=== PATIENT | male | born 1975 | race Two or more races ===

== ENCOUNTER 2022-08-30 05:32 | Day surgery (SDC) | payer OTHER | END 2022-08-30 10:35 | disposition home or self-care (01) | LOC: AMB-ENDOS 05:32 → CIR.AMB 13:45 | PROVIDERS: ATTEND Colon & Rectal Surgery | DX: Z85.048 Personal history of other malignant neoplasm of rectum, rectosigmoid junction, and anus (principal); K92.1 Melena; K64.8 Other hemorrhoids; K57.30 Diverticulosis of large intestine without perforation or abscess without bleeding; Z20.822 Contact with and (suspected) exposure to COVID-19 ==

== ENCOUNTER 2023-02-28 05:57 | Day surgery (SDC) | payer OTHER | END 2023-02-28 10:10 | disposition home or self-care (01) | LOC: AMB-ENDOS 05:57 | PROVIDERS: ATTEND Colon & Rectal Surgery | DX: C20 Malignant neoplasm of rectum (principal); K64.8 Other hemorrhoids; Z20.822 Contact with and (suspected) exposure to COVID-19 ==

== ENCOUNTER 2024-03-04 08:43 | Emergency (ER) | payer OTHER ==
[~2024-03-04] VITALS: Ht 177.8 cm; Wt 93.0 kg
[2024-03-04] MEDS ORDERED: AMLODIPINE-OLM1 EACH (08:48)
[2024-03-04] MEDS ORDERED: GRALISE600 MG (08:49)
[2024-03-04] MEDS ORDERED: BARIUM SULFATE 450 ML ORAL.SUSP PO ONE (09:17)
[2024-03-04 09:43] LABS: HEMATOCRIT 42.5 % (39.0-48.0); HEMOGLOBIN 15.1 g/dL (13-16.00); MEAN CELL VOLUME 93.8 fL (80.0-100.00); MEAN CORPUSCULAR HEMOGLOBIN 33.2 pg (27.00-32.0); MEAN CORPUSCULAR HGB CONC 35.4 g/dl (32.0-36.0); PLATELET COUNT 217 K/uL (150-450); RED BLOOD COUNT 4.53 M/uL (4.00-6.00); RED CELL DISTRIBUTION WIDTH 14.2 % (11.5-14.5)
[2024-03-04 10:37] LABS: CALCIUM 9.3 mg/dL (8.5-10.1); CREATININE SERUM 0.95 mg/dL (0.70-1.30); GFR 85.35; POTASSIUM 4.5 mEq/L (3.5-5.1)
[2024-03-04 11:16] LABS: PH,URINE 5.5 (5.0-8.0); URINE APPEARANCE Clear; URINE BILIRRUBIN Negative (NEGATIVE); URINE BLOOD Negative; URINE COLOR Dark Yellow; URINE GLUCOSE Negative (NEGATIVE); URINE KETONE Trace (NEGATIVE); URINE LEUKOCYTE Negative; URINE NITRATE Negative; URINE PROTEIN Trace (NEGATIVE); URINE UROBILINOGEN 0.2 E.U./dl
[2024-03-04 11:21] LABS: URINE BACTERIA 76.8 uL (0.0-1933); URINE RBC 2.7 uL (0.0-20.8); URINE WBC 6.9 uL (0.0-23.2)
[2024-03-04 11:30] LABS: URINE CAST 0.15 uL (0.0-1.40)
== END 2024-03-04 14:12 | disposition home or self-care (01) ==
LOC: ER 08:44
PROVIDERS: Emergency Medicine
DX: R10.32 Left lower quadrant pain (principal); K57.32 Diverticulitis of large intestine without perforation or abscess without bleeding; N28.1 Cyst of kidney, acquired; N20.0 Calculus of kidney

== ENCOUNTER 2024-11-05 10:00 | Inpatient (IN) | payer OTHER ==
[~2024-11-05] VITALS: Ht 162.6 cm; Wt 97.5 kg
[~2024-11-05 10:00] MED LIST: AMLODIPINE-OLM1 EACH; GRALISE600 MG
[2024-11-06] MEDS ORDERED: AZOR 5-20 MG T1 EACH PO (13:21)
[2024-11-19] MEDS ORDERED: CEFTRIAXONE SODIUM 2,000 MG VIAL ONE (08:26)
[2024-11-19] MEDS ORDERED: METRONIDAZOLE/SODIUM CHLORIDE 500 MG/100 ML PIGGYBACK IV ONE ×2 (08:27→09:30)
[2024-11-19] MEDS ORDERED: LIDOCAINE HCL 1%/EPINEPHRINE 20ML VIAL IJ ONE (09:30)
[2024-11-19] MEDS ORDERED: CEFTRIAXONE SODIUM 2,000 MG VIAL IV ONE (09:30)
[2024-11-19] MEDS ORDERED: BUPIVACAINE HCL 30 ML VIAL IJ ONE (09:30)
[2024-11-19] MEDS ORDERED: SUGAMMADEX SODIUM 200 MG/2 ML VIAL IV ONE (12:19)
[2024-11-19] MEDS ORDERED: MORPHINE SULFATE 4 MG/ML VIAL IV ONE ×2 (13:15→13:30)
[2024-11-19] MEDS ORDERED: ONDANSETRON HCL 2 MG/ML VIAL IV PRN (13:45)
[2024-11-19] MEDS ORDERED: MORPHINE SULFATE 4 MG/ML CARTRIDGE IV PRN (13:45)
[2024-11-19] MEDS ORDERED: RINGERS SOLUTION,LACTATED 1,000 ML IV SCH (13:45)
[2024-11-19] MEDS ORDERED: OxyCODONE HCL 5 MG TABLET (ROXICODONE) PO PRN (13:45)
[2024-11-19] MEDS ORDERED: DEXTROSE 50 % IN WATER 0.5 G/ML VIAL IV PRN (13:45)
[2024-11-19] MEDS ORDERED: ACETAMINOPHEN 500 MG GEL..CAP PO SCH (14:00)
[2024-11-19] MEDS ORDERED: ENALAPRILAT DIHYDRATE 1.25 MG/ML VIAL IV PRN (16:00)
[2024-11-19] MEDS ORDERED: GABAPENTIN 300 MG CAPSULE PO ONE (16:06)
[2024-11-19] MEDS ORDERED: HYOSCYAMINE SULFATE 0.125 MG TAB.SUBL ONE (16:06)
[2024-11-19] MEDS ORDERED: METOCLOPRAMIDE HCL 5 MG/ML VIAL ONE (16:06)
[2024-11-19] MEDS ORDERED: CELECOXIB 200 MG CAPSULE PO ONE (16:07)
[2024-11-19 16:13] LABS: HEMATOCRIT 44.4 % (39.0-48.0); HEMOGLOBIN 15.3 g/dL (13-16.00); MEAN CELL VOLUME 90.6 fL (80.0-100.00); MEAN CORPUSCULAR HEMOGLOBIN 31.3 pg (27.00-32.0); MEAN CORPUSCULAR HGB CONC 34.5 g/dl (32.0-36.0); PLATELET COUNT 209 K/uL (150-450); RED CELL DISTRIBUTION WIDTH 13.9 % (11.5-14.5)
[2024-11-19] MEDS ORDERED: SIMETHICONE 125 MG CAPSULE PO ONE (16:47)
[2024-11-19] MEDS ORDERED: CELECOXIB 200 MG CAPSULE PO SCH (17:00)
[2024-11-19] MEDS ORDERED: HYOSCYAMINE SULFATE 0.125 MG TAB.SUBL SL SCH (17:00)
[2024-11-19] MEDS ORDERED: POLYETHYLENE GLYCOL 3350 17 GM BLIST.PACK PO SCH (17:00)
[2024-11-19] MEDS ORDERED: GABAPENTIN 300 MG CAPSULE PO SCH (17:00)
[2024-11-19] MEDS ORDERED: SIMETHICONE 125 MG CAPSULE PO SCH (17:00)
[2024-11-19] MEDS ORDERED: METOCLOPRAMIDE HCL 5 MG/ML VIAL IV SCH (17:00)
[2024-11-19 17:41] VITALS: BP 134/87; O2SAT 95
[2024-11-19] MEDS ORDERED: FAMOTIDINE/PF 20 MG/2 ML VIAL IV PUSH SCH (21:00)
[2024-11-20 00:26] VITALS: BP 123/72; O2SAT 93
[2024-11-20 06:50] LABS: HEMATOCRIT 41.1 % (39.0-48.0); HEMOGLOBIN 14.7 g/dL (13-16.00); MEAN CORPUSCULAR HEMOGLOBIN 32.1 pg (27.00-32.0); MEAN CORPUSCULAR HGB CONC 35.7 g/dl (32.0-36.0); PLATELET COUNT 208 K/uL (150-450); RED BLOOD COUNT 4.56 M/uL (4.00-6.00); RED CELL DISTRIBUTION WIDTH 14.1 % (11.5-14.5)
[2024-11-20 07:16] LABS: ALBUMIN 3.2 gm/dL (3.4-5.0); CALCIUM 8.3 mg/dL (8.5-10.1); CREATININE SERUM 0.83 mg/dL (0.70-1.30); GFR 99.31; MAGNESIUM 1.8 mg/dL (1.8-2.4); PHOSPHOROUS 2.8 mg/dL (2.5-4.9); POTASSIUM 3.63 mEq/L (3.5-5.1)
[2024-11-20 08:00] VITALS: BP 121/69; O2SAT 95
[2024-11-20] MEDS ORDERED: LACTOBACILLUS ACIDOPHILUS 1 CAP CAP PO SCH (09:00)
[2024-11-20] MEDS ORDERED: LACTULOSE 20 G/30 ML BLIST.PACK PO SCH (09:00)
[2024-11-20] MEDS ORDERED: AMLODIPINE BESYLATE 5 MG TABLET PO SCH (09:00)
[2024-11-20] MEDS ORDERED: ENOXAPARIN SODIUM 40 MG/0.4 ML SYRINGE SUBCUTANEO SCH (17:00)
[2024-11-20 18:15] VITALS: BP 96/57; O2SAT 97
[2024-11-21 00:45] VITALS: BP 110/69; O2SAT 96
[2024-11-21] MEDS ORDERED: ENOXAPARIN SODIUM 40 MG/0.4 ML SYRINGE SUBCUTANEO SCH (09:00)
[2024-11-21 09:48] VITALS: BP 152/98; O2SAT 97
[2024-11-21 12:00] VITALS: BP 133/87
[2024-11-21 16:00] VITALS: BP 161/89; O2SAT 95
[2024-11-22] VITALS: BP 124/78; O2SAT 95
[2024-11-22 08:00] VITALS: BP 125/83; O2SAT 95
[2024-11-22] MEDS ORDERED: DEXTROSE 50 % IN WATER 0.5 G/ML VIAL IV PRN (09:15)
[2024-11-22] MEDS ORDERED: INSULIN LISPRO 1,000 UNIT/10 ML UNITS SUBCUTANEO PRN (09:15)
[2024-11-22 15:54] LABS: CALCIUM 9.1 mg/dL (8.5-10.1); CHOL HDL RATIO 3.6 (0-5.0); CREATININE SERUM 1.29 mg/dL (0.70-1.30); GFR 59.7; POTASSIUM 3.63 mEq/L (3.5-5.1)
[2024-11-22] MEDS ORDERED: AMINO ACIDS 4.25 %/DEXTROSE 5% 1,000 ML PERIFERAL SCH (17:00)
[2024-11-22 17:15] VITALS: BP 100/68; O2SAT 97
[2024-11-23 01:45] VITALS: BP 109/70; O2SAT 97
[2024-11-23 08:00] VITALS: BP 111/73; O2SAT 95
[2024-11-23 09:34] LABS: ALBUMIN 3.5 gm/dL (3.4-5.0); BILIRUBIN TOTAL 0.51 mg/dL (0.3-1.2); CALCIUM 9.2 mg/dL (8.5-10.1); CREATININE SERUM 1.15 mg/dL (0.70-1.30); GFR 68.16; GLOBULINA 3.7 G/DL (2.4-3.5); POTASSIUM 4.4 mEq/L (3.5-5.1); TOTAL PROTEIN 7.2 gm/dL (6.4-8.2)
[2024-11-23 10:05] LABS: HEMATOCRIT 44.3 % (39.0-48.0); HEMOGLOBIN 15.5 g/dL (13-16.00); MEAN CELL VOLUME 90.5 fL (80.0-100.00); MEAN CORPUSCULAR HEMOGLOBIN 31.7 pg (27.00-32.0); PLATELET COUNT 293 K/uL (150-450); RED CELL DISTRIBUTION WIDTH 13.8 % (11.5-14.5)
[2024-11-23 16:00] VITALS: BP 116/77; O2SAT 95
[2024-11-24 07:46] LABS: HEMATOCRIT 40.7 % (39.0-48.0); HEMOGLOBIN 14.4 g/dL (13-16.00); MEAN CORPUSCULAR HEMOGLOBIN 32.2 pg (27.00-32.0); MEAN CORPUSCULAR HGB CONC 35.4 g/dl (32.0-36.0); PLATELET COUNT 261 K/uL (150-450); RED BLOOD COUNT 4.48 M/uL (4.00-6.00); RED CELL DISTRIBUTION WIDTH 13.5 % (11.5-14.5)
[2024-11-24 08:00] VITALS: BP 131/81; O2SAT 95
[2024-11-24 08:35] LABS: CALCIUM 8.8 mg/dL (8.5-10.1); CREATININE SERUM 0.86 mg/dL (0.70-1.30); GFR 95.32; MAGNESIUM 2.1 mg/dL (1.8-2.4); PHOSPHOROUS 3.2 mg/dL (2.5-4.9); POTASSIUM 3.82 mEq/L (3.5-5.1)
[2024-11-24 16:30] VITALS: BP 146/836; O2SAT 97
[2024-11-24 23:36] VITALS: BP 150/81; O2SAT 96
[2024-11-25 07:16] LABS: HEMATOCRIT 43.1 % (39.0-48.0); HEMOGLOBIN 15.2 g/dL (13-16.00); MEAN CELL VOLUME 90.9 fL (80.0-100.00); MEAN CORPUSCULAR HGB CONC 35.2 g/dl (32.0-36.0); PLATELET COUNT 258 K/uL (150-450); RED BLOOD COUNT 4.75 M/uL (4.00-6.00); RED CELL DISTRIBUTION WIDTH 13.4 % (11.5-14.5)
[2024-11-25 07:46] LABS: INR 1.01; PARTIAL THROMBOPLASTIN TIME 26.2 SECONDS (22.0-34.0)
[2024-11-25 08:00] LABS: ALBUMIN 3.2 gm/dL (3.4-5.0); BILIRUBIN TOTAL 0.71 mg/dL (0.3-1.2); BILIRUBIN,CONJUGATED 0.14 mg/dL (0.0-0.2); BILIRUBIN,UNCONJUGATED 0.57 mg/dL (0.0-0.6); CALCIUM 8.5 mg/dL (8.5-10.1); CHOL HDL RATIO 4.6 (0-5.0); CREATININE SERUM 0.91 mg/dL (0.70-1.30); GFR 89.3; GLOBULINA 3.7 G/DL (2.4-3.5); POTASSIUM 3.86 mEq/L (3.5-5.1); TOTAL PROTEIN 6.9 gm/dL (6.4-8.2)
[2024-11-25 09:00] VITALS: BP 147/84; O2SAT 95
[2024-11-25 10:19] LABS: UREA CLEARANCE 73.4 ML/MIN
[2024-11-25 16:35] VITALS: BP 132/81; O2SAT 95
[2024-11-26 00:24] VITALS: BP 127/84; O2SAT 96
[2024-11-26 08:00] VITALS: BP 132/81; O2SAT 95
[2024-11-26 16:00] VITALS: BP 137/75; O2SAT 97
[2024-11-27 00:57] VITALS: BP 146/86; O2SAT 98
[2024-11-27 06:50] LABS: HEMATOCRIT 37.3 % (39.0-48.0); HEMOGLOBIN 13.4 g/dL (13-16.00); MEAN CELL VOLUME 89.2 fL (80.0-100.00); MEAN CORPUSCULAR HGB CONC 35.9 g/dl (32.0-36.0); PLATELET COUNT 248 K/uL (150-450); RED BLOOD COUNT 4.18 M/uL (4.00-6.00); RED CELL DISTRIBUTION WIDTH 13.3 % (11.5-14.5)
[2024-11-27 07:22] LABS: ALBUMIN 2.9 gm/dL (3.4-5.0); BILIRUBIN TOTAL 0.62 mg/dL (0.3-1.2); CALCIUM 8.1 mg/dL (8.5-10.1); CREATININE SERUM 0.77 mg/dL (0.70-1.30); GFR 108.29; GLOBULINA 3.2 G/DL (2.4-3.5); POTASSIUM 3.45 mEq/L (3.5-5.1); TOTAL PROTEIN 6.1 gm/dL (6.4-8.2)
[2024-11-27 08:00] VITALS: BP 143/87; O2SAT 97
[2024-11-27 16:40] VITALS: BP 167/91; O2SAT 97
[2024-11-28 01:18] VITALS: BP 128/84; BP 150/83; O2SAT 97; O2SAT 99
[2024-11-28 08:20] VITALS: BP 178/89; O2SAT 98
[2024-11-28 16:00] VITALS: BP 133/84; O2SAT 99
[2024-11-29] VITALS: BP 146/87; O2SAT 97
[2024-11-29 07:05] LABS: HEMATOCRIT 39.8 % (39.0-48.0); HEMOGLOBIN 14.2 g/dL (13-16.00); MEAN CELL VOLUME 88.7 fL (80.0-100.00); MEAN CORPUSCULAR HEMOGLOBIN 31.7 pg (27.00-32.0); MEAN CORPUSCULAR HGB CONC 35.7 g/dl (32.0-36.0); PLATELET COUNT 273 K/uL (150-450); RED BLOOD COUNT 4.48 M/uL (4.00-6.00); RED CELL DISTRIBUTION WIDTH 13.6 % (11.5-14.5)
[2024-11-29 07:51] LABS: CALCIUM 8.4 mg/dL (8.5-10.1); CREATININE SERUM 0.85 mg/dL (0.70-1.30); GFR 96.62; MAGNESIUM 1.9 mg/dL (1.8-2.4); PHOSPHOROUS 3.4 mg/dL (2.5-4.9); POTASSIUM 3.59 mEq/L (3.5-5.1)
[2024-11-29 08:00] VITALS: BP 154/92; O2SAT 94
[2024-11-29 15:52] VITALS: BP 132/82; O2SAT 95
[2024-11-30 00:52] VITALS: BP 145/97; O2SAT 96
[2024-11-30 07:00] VITALS: BP 138/90; O2SAT 95
[2024-11-30] MEDS ORDERED: FAMOTIDINE/PF 20 MG/2 ML VIAL IV SCH (09:00)
[2024-11-30 16:00] VITALS: BP 126/80; O2SAT 96
[2024-12-01 00:21] VITALS: BP 115/77; O2SAT 96
[2024-12-01 08:23] VITALS: BP 117/70; O2SAT 95
[2024-12-01] MEDS ORDERED: PANTOPRAZOLE SODIUM 40 MG/VIAL VIAL IV NR (12:15)
[2024-12-01 16:00] VITALS: BP 111/70; O2SAT 95
[2024-12-02 01:12] VITALS: BP 116/76; O2SAT 95
[2024-12-02 06:18] LABS: BASO % 0.4 % (0.1-1.2); EOS % 1.5 % (0.7-7.0); HEMATOCRIT 42.4 % (40.1-51.0); HEMOGLOBIN 15.1 g/dL (13.7-17.5); LYMPH # 1.03 (1.18-3.74); LYMPH % 7.5 % (19.3-53.1); MEAN CORPUSCULAR HEMOGLOBIN 30.6 pg (25.6-32.2); MONO # 1.37 (0.24-0.82); NEUT # 10.86 (1.56-6.13); NEUT % 79.2 % (34.0-71.1); PLATELET COUNT 339 K/uL (163-369); RED BLOOD COUNT 4.94 M/uL (4.63-6.08); RED CELL DISTRIBUTION WIDTH 12.2 % (11.6-14.4)
[2024-12-02 06:50] LABS: INR 1.11; PARTIAL THROMBOPLASTIN TIME 29.3 SECONDS (22.0-34.0)
[2024-12-02 07:09] LABS: ALBUMIN 3.2 gm/dL (3.4-5.0); BILIRUBIN TOTAL 0.41 mg/dL (0.3-1.2); BILIRUBIN,CONJUGATED 0.15 mg/dL (0.0-0.2); BILIRUBIN,UNCONJUGATED 0.26 mg/dL (0.0-0.6); CALCIUM 8.8 mg/dL (8.5-10.1); CHOL HDL RATIO 5.6 (0-5.0); CREATININE SERUM 1.4 mg/dL (0.70-1.30); GFR 54.32; MAGNESIUM 2.1 mg/dL (1.8-2.4); POTASSIUM 3.88 mEq/L (3.5-5.1); TOTAL PROTEIN 7.2 gm/dL (6.4-8.2)
[2024-12-02 08:00] VITALS: BP 123/83; O2SAT 95
[2024-12-02] MEDS ORDERED: PANTOPRAZOLE SODIUM 40 MG/VIAL VIAL IV SCH (09:00)
[2024-12-02] MEDS ORDERED: 0.9 % SODIUM CHLORIDE 1,000 ML IV SCH (11:45)
[2024-12-02 16:03] VITALS: BP 118/80; O2SAT 94
[2024-12-03 01:00] VITALS: BP 124/77; O2SAT 95
[2024-12-03 08:00] VITALS: BP 125/80; O2SAT 95
[2024-12-03 16:12] VITALS: BP 111/75; O2SAT 99
[2024-12-04 01:00] VITALS: BP 136/85; O2SAT 98
[2024-12-04 06:53] LABS: BASO % 0.4 % (0.1-1.2); EOS # 0.18 (0.04-0.54); EOS % 1.6 % (0.7-7.0); HEMATOCRIT 40.9 % (40.1-51.0); HEMOGLOBIN 14.3 g/dL (13.7-17.5); LYMPH # 0.85 (1.18-3.74); LYMPH % 7.6 % (19.3-53.1); MEAN CORPUSCULAR HEMOGLOBIN 30.4 pg (25.6-32.2); MONO # 1.08 (0.24-0.82); MONO % 9.7 % (4.7-12.5); NEUT % 79.9 % (34.0-71.1); PLATELET COUNT 377 K/uL (163-369); RED BLOOD COUNT 4.71 M/uL (4.63-6.08); RED CELL DISTRIBUTION WIDTH 12.1 % (11.6-14.4)
[2024-12-04 07:58] LABS: CALCIUM 8.4 mg/dL (8.5-10.1); CREATININE SERUM 1.19 mg/dL (0.70-1.30); GFR 65.53; POTASSIUM 4.18 mEq/L (3.5-5.1)
== END 2024-12-04 13:13 | disposition home or self-care (01) | DRG 330 ==
LOC: SURH 11-12 10:00 → O/R 11-19 05:21 → SURG 11-19 05:21 → O/R 12-04 09:04 → SURG 12-04 09:06
PROVIDERS: Internal Medicine; Internal Medicine Geriatric Medicine; ADMIT Colon & Rectal Surgery; ATTEND Colon & Rectal Surgery
PROC: 0DTP4ZZ Resection of Rectum, Percutaneous Endoscopic Approach (ICD-10-PCS; 2024-11-19)
PROC: 07BB4ZZ Excision of Mesenteric Lymphatic, Percutaneous Endoscopic Approach (ICD-10-PCS; 2024-11-19)
PROC: 07BC4ZZ Excision of Pelvis Lymphatic, Percutaneous Endoscopic Approach (ICD-10-PCS; 2024-11-19)
PROC: 0DJD8ZZ Inspection of Lower Intestinal Tract, Via Natural or Artificial Opening Endoscopic (ICD-10-PCS; 2024-11-19)
PROC: 0DTN4ZZ Resection of Sigmoid Colon, Percutaneous Endoscopic Approach (ICD-10-PCS; 2024-11-19)
PROC: 0D1B4Z4 Bypass Ileum to Cutaneous, Percutaneous Endoscopic Approach (ICD-10-PCS; principal; 2024-11-19 15:30)
DX: C20 Malignant neoplasm of rectum (principal); K56.7 Ileus, unspecified; K92.1 Melena; K91.89 Other postprocedural complications and disorders of digestive system; N17.9 Acute kidney failure, unspecified; R59.0 Localized enlarged lymph nodes; E86.0 Dehydration; I10 Essential (primary) hypertension

== ENCOUNTER → 2024-12-25 | Emergency (ER) | payer OTHER ==
[~2024-12-25] VITALS: Ht 177.8 cm; Wt 88.5 kg
[~2024-12-25] MED LIST changes: +AZOR 5-20 MG T1 EACH PO; +KETOROLAC TROMETHAMINE 60 MG VIAL IM STA; +MORPHINE SULFATE 4 MG/ML VIAL IV STA
[2024-12-25 14:14] LABS: BASO % 0.4 % (0.1-1.2); EOS # 0.12 (0.04-0.54); EOS % 1.4 % (0.7-7.0); HEMATOCRIT 37.3 % (40.1-51.0); HEMOGLOBIN 12.6 g/dL (13.7-17.5); LYMPH # 0.77 (1.18-3.74); LYMPH % 9.2 % (19.3-53.1); MEAN CORPUSCULAR HEMOGLOBIN 30.2 pg (25.6-32.2); MONO # 0.89 (0.24-0.82); MONO % 10.6 % (4.7-12.5); NEUT # 6.56 (1.56-6.13); NEUT % 77.9 % (34.0-71.1); PLATELET COUNT 248 K/uL (163-369); RED BLOOD COUNT 4.17 M/uL (4.63-6.08); RED CELL DISTRIBUTION WIDTH 12.9 % (11.6-14.4)
[2024-12-25 14:39] LABS: PH,URINE 5.5 (5.0-8.0); URINE APPEARANCE Cloudy; URINE BILIRRUBIN Small (NEGATIVE); URINE BLOOD Large; URINE COLOR Dark Yellow; URINE GLUCOSE Negative (NEGATIVE); URINE KETONE Trace (NEGATIVE); URINE LEUKOCYTE Negative; URINE NITRATE Negative
[2024-12-25 14:41] LABS: CALCIUM 9.5 mg/dL (8.5-10.1); CREATININE SERUM 1.33 mg/dL (0.70-1.30); GFR 57.63; POTASSIUM 4.14 mEq/L (3.5-5.1)
[2024-12-25 14:43] LABS: URINE BACTERIA 50.1 uL (0.0-1933); URINE CAST 5.15 uL (0.0-1.40); URINE EPITHELIAL CELLS 53.6 uL (0.0-38.8); URINE RBC 433.5 uL (0.0-20.8); URINE WBC 21.8 uL (0.0-23.2)
[2024-12-25 15:16] LABS: URINE PROTEIN 300 (NEGATIVE)
== END | disposition home or self-care (01) ==
LOC: ER 11:57
PROVIDERS: General Practice
DX: N23 Unspecified renal colic (principal)
CPT/HCPCS: 36415; 74176; 96365; 99284; J2270

== ENCOUNTER 2025-04-01 06:00 | Day surgery (SDC) | payer OTHER ==
[~2025-04-01 06:00] MED LIST changes: -KETOROLAC TROMETHAMINE 60 MG VIAL IM STA; -MORPHINE SULFATE 4 MG/ML VIAL IV STA
[2025-04-02] MEDS ORDERED: fentaNYL CITRATE 50 MCG/ML AMPUL IV PUSH ONE (09:45)
[2025-04-02] MEDS ORDERED: MIDAZOLAM HCL 2 MG/2 ML VIAL IV ONE (09:45)
[2025-04-02] MEDS ORDERED: DIPHENHYDRAMINE HCL 50 MG/ML VIAL 1ML IV ONE (09:45)
== END 2025-04-02 11:55 | disposition home or self-care (01) ==
LOC: AMB-ENDOS 06:00
PROVIDERS: ATTEND Colon & Rectal Surgery
DX: C20 Malignant neoplasm of rectum (principal); Z85.048 Personal history of other malignant neoplasm of rectum, rectosigmoid junction, and anus; K92.1 Melena; I10 Essential (primary) hypertension; R10.9 Unspecified abdominal pain

== ENCOUNTER 2025-05-20 12:45 | Inpatient (IN) | payer OTHER ==
[~2025-05-20] VITALS: Ht 177.8 cm; Wt 100.7 kg
[2025-05-28] MEDS ORDERED: CEFTRIAXONE SODIUM 2,000 MG VIAL ONE (09:45)
[2025-05-28] MEDS ORDERED: METRONIDAZOLE/SODIUM CHLORIDE 500 MG/100 ML PIGGYBACK IV ONE (09:45)
[2025-05-28] MEDS ORDERED: CHLORHEXIDINE GLUCONATE 120 ML BOTTLE TOP ONE (10:19)
[2025-05-28] MEDS ORDERED: BUPIVACAINE HCL/Mpf 0.5% 10ML VIAL ONE (10:19)
[2025-05-28] MEDS ORDERED: LIDOCAINE HCL 1%/EPINEPHRINE 20ML VIAL IJ ONE (10:20)
[2025-05-28] MEDS ORDERED: OxyCODONE HCL 5 MG TABLET (ROXICODONE) PO PRN (12:15)
[2025-05-28] MEDS ORDERED: ONDANSETRON HCL 2 MG/ML VIAL IV PRN (12:15)
[2025-05-28] MEDS ORDERED: MORPHINE SULFATE 4 MG/ML CARTRIDGE IV PRN (12:15)
[2025-05-28] MEDS ORDERED: DEXTROSE 50 % IN WATER 0.5 G/ML DISP.SYRIN IV PRN (12:15)
[2025-05-28] MEDS ORDERED: RINGERS SOLUTION,LACTATED 1,000 ML IV SCH (12:15)
[2025-05-28] MEDS ORDERED: SUGAMMADEX SODIUM 200 MG/2 ML VIAL IV ONE (12:17)
[2025-05-28] MEDS ORDERED: HYOSCYAMINE SULFATE 0.125 MG TAB.SUBL SL SCH (13:00)
[2025-05-28] MEDS ORDERED: ACETAMINOPHEN 500 MG GEL..CAP PO SCH (14:00)
[2025-05-28 15:14] LABS: BASO % 0.3 % (0.1-1.2); EOS # 0.05 (0.04-0.54); EOS % 0.3 % (0.7-7.0); LYMPH # 0.59 (1.18-3.74); LYMPH % 4.1 % (19.3-53.1); MEAN PLATELET VOLUME 10.40 fl (9.4-12.4); MONO # 0.74 (0.24-0.82); MONO % 5.1 % (4.7-12.5); NEUT # 12.89 (1.56-6.13); NEUT % 89.7 % (34.0-71.1); RED CELL DISTRIBUTION WIDTH 12.7 % (11.6-14.4)
[2025-05-28] MEDS ORDERED: METOCLOPRAMIDE HCL 5 MG/ML VIAL IV SCH (17:00)
[2025-05-28] MEDS ORDERED: GABAPENTIN 300 MG CAPSULE PO SCH (17:00)
[2025-05-28] MEDS ORDERED: CELECOXIB 200 MG CAPSULE PO SCH (17:00)
[2025-05-28 17:30] VITALS: BP 117/70; O2SAT 95
[2025-05-28] MEDS ORDERED: FAMOTIDINE/PF 20 MG/2 ML VIAL IV PUSH SCH (21:00)
[2025-05-29 00:17] VITALS: BP 103/59; O2SAT 96
[2025-05-29 06:46] LABS: BASO % 0.3 % (0.1-1.2); EOS # 0.08 (0.04-0.54); EOS % 0.7 % (0.7-7.0); LYMPH # 0.65 (1.18-3.74); LYMPH % 5.9 % (19.3-53.1); MEAN PLATELET VOLUME 10.30 fl (9.4-12.4); MONO # 1.06 (0.24-0.82); MONO % 9.6 % (4.7-12.5); NEUT # 9.16 (1.56-6.13); NEUT % 82.8 % (34.0-71.1); RED CELL DISTRIBUTION WIDTH 12.8 % (11.6-14.4)
[2025-05-29 07:14] LABS: BUN CREA RATIO 12.0 (7.0-25.0); CREATININE SERUM 1.16 mg/dL (0.70-1.30); GFR 67.2; GLUCOSE FASTING 105.0 mg/dL (65-100); OSMOLALITY SERUM 280.0 MOSM/KG (275-295)
[2025-05-29] MEDS ORDERED: LACTULOSE 20 G/30 ML BLIST.PACK PO SCH (09:00)
[2025-05-29 11:53] VITALS: BP 110/66; O2SAT 97
[2025-05-29] MEDS ORDERED: ENOXAPARIN SODIUM 40 MG/0.4 ML SYRINGE SUBCUTANEO SCH (17:00)
[2025-05-29 17:54] VITALS: BP 115/71; O2SAT 94
[2025-05-30 00:47] VITALS: BP 112/73; O2SAT 94
[2025-05-30 08:00] VITALS: BP 130/83; O2SAT 96
[2025-05-30] MEDS ORDERED: LOPERAMIDE HCL 2 MG CAPSULE PO SCH (09:00)
[2025-05-30] MEDS ORDERED: ENOXAPARIN SODIUM 40 MG/0.4 ML SYRINGE SUBCUTANEO SCH (09:00)
[2025-05-30 16:00] VITALS: BP 138/79; O2SAT 94
[2025-05-31 00:30] VITALS: BP 120/70; O2SAT 100
[2025-05-31 08:10] VITALS: BP 129/83; O2SAT 96
[2025-05-31] MEDS ORDERED: HYOSCYAMINE0.125 M1 SL (09:40)
[2025-05-31] MEDS ORDERED: CELEBREX200MG PO (09:40)
[2025-05-31] MEDS ORDERED: PEPCID AC20 MG PO (09:41)
[2025-05-31] MEDS ORDERED: TRAM1TAB98 PO (09:41)
== END 2025-05-31 12:48 | disposition home or self-care (01) | DRG 330 ==
LOC: SURG 05-28 07:00 → O/R 05-28 09:00 → SURG 05-28 12:45 → SURH 05-28 13:43
PROVIDERS: ADMIT Colon & Rectal Surgery; ATTEND Colon & Rectal Surgery
PROC: 0DBB4ZZ Excision of Ileum, Percutaneous Endoscopic Approach (ICD-10-PCS; principal; 2025-05-28 07:00)
DX: Z43.2 Encounter for attention to ileostomy (principal); C20 Malignant neoplasm of rectum; K56.0 Paralytic ileus; Z85.048 Personal history of other malignant neoplasm of rectum, rectosigmoid junction, and anus; T81.89XA Other complications of procedures, not elsewhere classified, initial encounter; Y65.8 Other specified misadventures during surgical and medical care; N23 Unspecified renal colic; I10 Essential (primary) hypertension